=== PATIENT | male | born 1965 | race Caucasian/White ===

== ENCOUNTER 2021-06-23 13:09 | Emergency (ER) | payer BC, OTHER ==
[~2021-06-23] VITALS: Ht 170.2 cm; Wt 77.1 kg
[2021-06-23] MEDS ORDERED: ACETAMINOPHEN 325 MG TABLET PO ONE (14:15)
[2021-06-23] MEDS ORDERED: ACETAMINOPHEN 325 MG TABLET ONE (14:21)
--- NOTE | 2021-06-23 14:52 | NUR ---
Patient discharged to home in stable condition. Written and verbal after care instructions given. Patient verbalizes understanding of instructions. Stressed follow up or return to ER for worsening s/s.
== END 2021-06-23 14:53 | disposition home or self-care (01) ==
LOC: ER 13:09
DX: U07.1 COVID-19 (principal)
CPT/HCPCS: 71045; A4663